=== PATIENT | female | born 1980 | race Caucasian/White ===

== ENCOUNTER 2025-08-15 09:27 | Emergency (ER) | payer OTHER, MEDICAID, SELFPAY ==
--- OUTSIDE RECORDS SUMMARY | 2025-08-15 09:29 | XMS_ITS | Clinical Summary ---
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 Phone Unknown, Doctor Primary Care Provider Unavailabl e Allergies Active Allergy Reactions Criticality Noted Date Comments Amoxicillin 11/12/2009 Cephalexin 11/12/2009 Medications No known medications Social History Tobacco Use Types Packs/Day Years Used Date Smoking Tobacco: Never Alcohol Use Standard Drinks/Week Comments Not Asked 0 (1 standard drink = 0.6 oz pur e alcohol) Social Connections Answer Date Recorded Frequency of Communication with Friends and Fami ly Not on file 01/19/2024 Comments Unknown Sex and Gender Information Value Date Recorded Sex Assigned at Not on file 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 Gender Identity Not on file Sexual Orientation Not on file Obstetrics History Last Filed Vital Signs Vital Sign Reading Time Taken Comments Blood Pressure 96/66 11/12/2009 7:12 PM CEMENT SIDE LASTER Pulse 89 11/12/2009 7:12 PM CEMENT SIDE LASTER Temperature 36.9 C (98.4 F) 11/12/2009 7:12 PM CEMENT SIDE LASTER Respiratory Rate - - Oxygen Saturation - - Inhaled Oxygen Concentration - - Weight 57 kg (125 lb 9.6 oz) 11/12/2009 7:12 PM CEMENT SIDE LASTER Height - - Body Mass Index - - Plan of Treatment Health Maintenance Due Date Last Done Comments Tetanus booster 1990 Depression screening for age 12+ 1991 HIV for age 15-65 1994 BMI (ht and wt on same day) for age 18+ 1997 Hepatitis C screening for age 18-79 1997 Hepatitis B series for 19+ (1 of 3 - 19+ 3-dose series) 1998 Colonoscopy through age 75 2024 Lipids for age 45-75 2024 Mammogram for age 45-75 2024 COVID-19 vaccine series ( - 2023- season) 2025 Influenza Vaccine (#1) 2025 Pap test for age 21-65 03/27/2027 , 03/27/2024, 10/19/2011, Additional history exists RSV vaccine for adults or (1 - 1-dose 75+ series) 2054 Pneumococcal series for age 6-49 Aged Out No longer eligible based on patient's age to complete this topic Procedures Procedure Name Priority Date/Time Associated Diagnosis Comments HPV HIGH RISK Routine 03/27/2024 8:35 AM CDT from Last 3 Months or Most Recently Relevant to Health Maintenance Results * HPV HIGH RISK (03/27/2024 8:35 AM CDT) TYPE 16 Negative Negative 04/02/2024 4:11 PM CDT [facility] TYPE 18 Negative Negative 04/02/2024 4:11 PM CDT [facility] OTHER HIGH RISK TYPES Negative Negative 04/02/2024 4:11 PM CDT [facility] Other (Cervical) 03/27/2024 8:35 AM CDT 03/28/2024 10:23 AM CDT Narrative [facility] - 04/02/2024 4:11 PM CDT HPV types 16, 18, 31, 33, 35, 39, 45, 51, 52, 56, 58, 59, 66 and 68 DNA were undetectable or below the pre-set threshold. Methodology: Laurie Derrell 4800 HPV Test us Zaida Dee NP MICROBIOLOGY Final Res ult [facility] 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 PCP - General 08/29/06
[2025-08-15 09:34] VITALS: BP 130/86; PULSE 88; RESP 18; TEMP 37.6; O2SAT 100; BMI 24.8
--- NOTE | 2025-08-15 09:48 | ED.GENADULT ---
HPI - General Adult General Chief complaint: Vaginal Bleeding Stated complaint: 8 weeks , cramping/bleeding Time Seen by Provider: 08/15/25 09:48 History of Present Illness HPI narrative: Patient presents to the emergency department complaining of vaginal bleeding and cramping. This has been going on since yesterday around 1600. Patient denies any nausea/ vomiting or diarrhea. This is her 11th with 12 living children. 45-year-old woman presenting to the emergency department with concern of vaginal bleeding and some cramping. She is G11. She knows herself to be and was anticipating ultrasound at the beginning of next week for dating. Her last period was irregular; actually has some irregular cycles.. LMP she would estimate at 06/04/2025 which would give estimated due date of 03/11/2026. Presumably would be 10 weeks and 2 days by LMP. Has had some light bleeding more noticeable in wiping. On further reflection would estimate date of conception is though to be or around July 04 which would put her at about 8 weeks of . No fever. No dysuria. No unusual vaginal discharge otherwise. Related Data Home Medications ?Medication ?Instructions ?Recorded ?Confirmed No Known Home Medications 03/27/24 08/15/25 Allergies Allergy/AdvReac Type Severity Reaction Status Date / Time cephalexin (From Keflex) Allergy Mild Verified 08/15/25 09:38 Sulfa (Sulfonamide Allergy Mild Verified 08/15/25 09:38 Antibiotics) amoxicillin AdvReac Mild Verified 08/15/25 09:38 Review of Systems Status of ROS: Reports: 6 or more systems reviewed and unremarkable except as noted in History and below [facility] Medical History HELLP syndrome ?O14.20 - HELLP syndrome (HELLP), unspecified trimester (ICD-10) Surgical History (Updated 03/27/24 @ 08:41 by Zaida Dee CNP) History of reversal of tubal ligation ?Z98.890 - Other specified postprocedural states (ICD-10) H/O tubal ligation ?Z98.51 - Tubal ligation status (ICD-10) History of appendectomy ?Z90.49 - Acquired absence of other specified parts of digestive tract (ICD-10) S/P section ?Z98.891 - History of uterine scar from previous surgery (ICD-10) Family History (Updated 03/27/24 @ 08:38 by Zaida Dee CNP) Mother Cancer Social History Smoking Status: Never smoker How often do you have a drink containing alcohol: never AUDIT-C Alcohol total score: 0 Non-prescribed substance use: denies use Exam Narrative: Exam Narrative: Pleasant NAD. Darkly complected. Skin otherwise warm and dry. Heart in regular rate and rhythm. Abdomen is soft. Is not solution comfortable but feels a little bloated with palpation of the low abdomen. Extremities well perfused without edema. Pelvic exam is not done. Blood was present on the transvaginal probe with ultrasound Const: Vital Signs, click to edit/add: Vital Signs - 24 hr 08/15/25 09:34 Temperature 99.7 F H Pulse Rate [Right Pulse Oximeter] 88 Respiratory Rate 18 Blood Pressure [Ri ght Upper Arm] 130/86 Pulse Oximetry 100 Oxygen Delivery Me thod Room Air Documenting provider has reviewed patient's vital signs: yes Course Vital Signs Vital signs: Initial Vital Signs Temperature 99.7 F H 08/15/25 09:34 Temperature Source Temporal Artery Scan 08/15/25 09:34 Pulse Rate 88 08/15/25 09:34 Pulse Rhythm Regular 08/15/25 09:34 Pulse Strength 3+ Normal 08/15/25 09:34 Respiratory Rate 18 08/15/25 09:34 Blood Pressure 130/86 08/15/25 09:34 Blood Pressure Mean 100 08/15/25 09:34 Blood Pressure Position Sitting 08/15/25 09:34 Pulse Oximetry 100 08/15/25 09:34 Oxygen Delivery Method Room Air 08/15/25 09:34 Vital Signs Temperature 99.7 F H 08/15/25 09:34 Pulse Rate 88 08/15/25 09:34 Respiratory Rate 18 08/15/25 09:34 Blood Pressure 130/86 08/15/25 09:34 Pulse Oximetry 100 08/15/25 09:34 Oxygen Delivery Method Room Air 08/15/25 09:34 Temperature 99.7 F H 08/15/25 09:34 Pulse Rate 69 08/15/25 11:30 Respiratory Rate 16 08/15/25 11:30 Blood Pressure 119/75 08/15/25 11:30 Pulse Oximetry 98 08/15/25 11:30 Oxygen Delivery Method Room Air 08/15/25 11:30 Medical Decision Making MDM Narrative Medical decision making narrative: Appears to be having some light bleeding/spotting in early . Will try to verify with dating here with ultrasound possible presence of subchorionic/perigestational bleed and presence of IUP, not ectopic, and viability. On review of record I do not have blood type. Will need to confirm this. Otherwise might need half dose RhoGAM equivalent. Discussed findings on ultrasound with circuit rider. Inconsistent with LMP. This would appear to be a nonviable . Large discrepancy between LMP and ultrasound dating Discussed this also with OB on-call for further recommendations, follow-up. [place]-rump length less than 0.7 at this point suggesting nonviability. Blood type O positive. HCG is indeterminate Radiology over-read below OB ULTRASOUND INDICATION: Bleeding in early . TECHNIQUE: Real time grayscale imaging of the fetus was performed. Transvaginal. Transvaginal imaging performed to better demonstrate the endometrium and ovaries. LMP: 06/04/2025. PHANI by LMP: 03/11/2026. GA: 10 w, 2 d. Previous US: No. CRL: 0.42 cm. 6 w 1 d. PHANI: 04/09/2026. FHR: 0 BPM. Gestational sac: 1.5 cm. 6 weeks 2 days. Yolk sac: 4.7 mm. Right ovary: N/V. Left ovary: N/V. IMPRESSION: Intrauterine gestational sac is present measuring 1.5 cm, 6 weeks 2 days. 4.7 mm yolk sac is present. There may be a small pole measuring 4.5 mm, 6 weeks 1 day. No heart tones. Follow-up in 11-14 days recommended. Weston Jones M.D. Diagnostic Radiologist [email or web address] TARUN/teja lezama/Dictated by: Weston Jones MD @ 08/15/2025 10:31:00 AM See patient discharge plan for further discussion I do think this is likely a spontaneous miscarriage. Please follow-up with Women's Health as arranged. Be seen sooner for marked increase in persistent/uncontrolled pain, bleeding such that you are soaking an overnight pad an hour for 2 consecutive hours, associated fever or lightheadedness. I would consider follow-up ultrasound in approximately 11 days to confirm whether not is progressing. Medical Records Medical records reviewed: Yes I reviewed the patient's medical records Lab Data Lab results reviewed: Yes I reviewed the patient's lab results Labs: Lab Results 08/15/25 08/15/25 Range/Units 10:20 11:38 Hgb 13.3 (12.0-16.0) gm/dL HCG, Quant 52202.00 mIU/mL Urine Color Light yellow (Yellow) Urine Appearance Clear (Clear) Urine pH 7.0 (5.0-8.5) Ur Specific [place] 1.015 (1.000-1.030) Urine Protein Negative (Negative) Urine Glucose (UA) Negative (Negative) Urine Ketones Negative (Negative) Urine Blood 2+ A (Negative) Urine Nitrite Negative (Negative) Urine Bilirubin Negative (Negative) Urine Urobilinogen 0.2 (0.2-1.0) Ur Leukocyte Esterase 1+ A (Negative) Urine RBC 0-2 (0-2) Urine WBC 2-5 (0-5) Ur Squamous Epith Cells Few (None-Few) Urine Bacteria None (None) Blood Type O Positive Discharge Plan Discharge Clinical Impression: Bleeding in early Patient Disposition: Home w/ Parent or Adult Condition: Stable Additional Instructions: I do think this is likely a spontaneous miscarriage. Please follow-up with Women's Health as arranged. Be seen sooner for marked increase in persistent/uncontrolled pain, bleeding such that you are soaking an overnight pad an hour for 2 consecutive hours, associated fever or lightheadedness. I would consider follow-up ultrasound in approximately 11 days to confirm whether not is progressing. Prescriptions: No Action No Known Home Medications Follow Up/Referrals: Corrina Freedman MD [Primary Care Provider, PAVER OPERATOR] Stand Alone Forms: [employer] Info Instructions
--- NOTE | 2025-08-15 09:53 | CRLHL7_ITS ---
For Patients: As a result of the Cures Act, medical imaging exams and procedure reports are released immediately into your electronic medical record. You may view this report before your referring provider. If you have questions, please contact your health care provider. OB ULTRASOUND INDICATION: Bleeding in early . TECHNIQUE: Real time grayscale imaging of the fetus was performed. Transvaginal. Transvaginal imaging performed to better demonstrate the endometrium and ovaries. LMP: 06/04/2025. PHANI by LMP: 03/11/2026. GA: 10 w, 2 d. Previous US: No. CRL: 0.42 cm. 6 w 1 d. PHANI: 04/09/2026. FHR: 0 BPM. Gestational sac: 1.5 cm. 6 weeks 2 days. Yolk sac: 4.7 mm. Right ovary: N/V. Left ovary: N/V. IMPRESSION: Intrauterine gestational sac is present measuring 1.5 cm, 6 weeks 2 days. 4.7 mm yolk sac is present. There may be a small pole measuring 4.5 mm, 6 weeks 1 day. No heart tones. Follow-up in 11-14 days recommended. Weston Jones M.D. Diagnostic Radiologist [email or web address] TARUN/teja lezama/Dictated by: Weston Jones MD @ 08/15/2025 10:31:00 AM (Electronically Signed)
[2025-08-15 10:23] LABS: Appearance Urine Clear (Clear)
[2025-08-15 11:30] VITALS: BP 119/75; PULSE 69; RESP 16; O2SAT 98
[2025-08-15 11:44] LABS: Hemoglobin* 13.3 gm/dL (12.0-16.0)
[2025-08-15 12:17] LABS: HCG Quantitative* 11806.00 mIU/mL
== END 2025-08-15 12:39 | disposition home or self-care (01) ==
PROVIDERS: Emergency Provider Family Medicine; PCP Obstetrics & Gynecology
DX: O20.9 Hemorrhage in early pregnancy, unspecified (principal)
CPT/HCPCS: 36415; 76817; 81001; 84702; 85018; 86900; 86901; 87086; 99283; 99284